=== PATIENT | female | born 2000 | race Caucasian/White ===

== ENCOUNTER → 2021-06-14 12:09 | Outpatient (CLI) | payer OTHER, SELFPAY ==
--- NOTE | 2021-06-14 12:13 | DI.US.S_ITS ---
PROCEDURE: US OB <= 14 WEEKS FETUS INDICATIONS: VIABILITY AND DATING. OUTSIDE/PRIOR DATING DATA: Last menstrual period (LMP): 04/11/21 . LMP-based estimated date of delivery (MAINOR): 01/16/22 . First dating scan (date and location): 06/14/21, current study . Estimated date of delivery (MAINOR) from first dating scan: 01/18/22 . TECHNIQUE: Real-time scanning was performed of the fetus and maternal pelvic organs, with image documentation. COMPARISON: None. FINDINGS: Embryo: Single fetus demonstrates crown-rump length of 2.20 cm corresponding to an eight week six day plus or minus five days gestation. Normal yolk sac is visible. Unfused amnion is seen. Heart rate: 175 beats per minute Measurement variability in dating: +/- 4 weeks by LMP, +/- 7 days by mean sac diameter (use before 6 weeks gestation if crown-rump length not able to be measured), +/- 5 days by crown-rump length (up to 8 weeks 6 days gestation), +/- 7 days by crown-rump length (up to 13 weeks 6 days gestation). Maternal organs: Anteverted uterus with a fundal gestational sac and no perigestational hemorrhage. Possible sub septate uterine morphology. Closed cervix. 2 dominant follicles on the right ovary measuring 2.2 and 2.1 cm. Normal left ovary. Trace periovarian fluid. IMPRESSION: 1. Single viable intrauterine with a gestational age of eight weeks, six days, and sonographically derived due date of 01/18/22. This is in good agreement with the clinically assigned gestational age. 2. Possible sub septate uterine morphology given shaped gestational sac. Dictated by: Zoey Najera M.D. on 06/14/2021 at 17:41 Approved by: Zoey Najera M.D. on 06/14/2021 at 17:47
== END ==
PROVIDERS: Referring Provider Family Medicine; Visit Provider Family Medicine
DX: Z34.01 Encounter for supervision of normal first pregnancy, first trimester (principal); Z3A.08 8 weeks gestation of pregnancy
CPT/HCPCS: 76801; 76817

== ENCOUNTER → 2021-08-14 08:29 | Outpatient (CLI) | payer OTHER, SELFPAY ==
[2021-08-14 09:05] LABS: Appearance Urine UA CLEAR; Bilirubin Urine UA NEGATIVE (NEGATIVE); Color Urine UA YELLOW; Glucose Urine UA NEGATIVE (Negative); Ketones Urine UA NEGATIVE (NEGATIVE); Leukocyte Esterase Urine UA NEGATIVE (NEGATIVE); Nitrite Urine UA NEGATIVE (Negative); Occult Blood Urine UA NEGATIVE (Negative); Protein Urine UA NEGATIVE (Negative); Urobilinogen Urine UA 0.2 E.U./dL (0.2)
[2021-08-14 09:38] LABS: Add Manual Diff / Slide Review NO; Basophils Absolute Auto 100 /uL (0-100); Basophils Percent Auto 0.6 % (0-2); Eosinophils Absolute Auto 200 /uL (0-450); Eosinophils Percent Auto 1.4 % (2-4); Hematocrit 36.5 % (36-46); Hemoglobin 12.3 g/dL (12.0-16.0); Lymphocytes Absolute Auto 2000 /uL (1100-4500); Lymphocytes Percent Auto 17.4 % (25-40); Mean Corpuscular HGB Conc 33.6 % (30-36); Mean Corpuscular Hemoglobin 30.9 PG (26-34); Mean Corpuscular Volume 91.9 fL (80-100); Monocytes Absolute Auto 1000 /uL (0-900); Monocytes Percent Auto 8.9 % (3-14); Neutrophils Absolute Auto 8200 /uL (1500-7000); Neutrophils Percent Auto 71.7 % (50-75); Platelet Count 321 X10^3/uL (150-400); Red Blood Cell Count 3.97 X10^6/uL (4.0-5.2); Red Cell Distribution Width 13.6 % (11.6-14.8); White Blood Cell Count 11.4 X10^3/uL (4.5-11.0)
[2021-08-14 17:46] LABS: HIV 1 & 2 Ab/Ag 4th Gen Combo NEGATIVE (NEGATIVE); Hep C Virus Ab w/Reflex Quant NEGATIVE s/c (NEGATIVE); Hepatitis B Surface Antigen NEGATIVE s/c (NEGATIVE); Rubella Antibody IgG 33.4 IU/mL (>15)
[2021-08-15 07:00] LABS: RPR Screen Non Reactive (Non Reactive)
[2021-08-15 08:36] LABS: Varicella IgG Antibody 676 index (Immune >165)
[2021-08-16 20:13] LABS: Estriol, Free 1.23 ng/mL (.); Inhibin A, Dimeric 255.98 pg/mL (.); Inhibin A, MoM 1.55 (.); Maternal Ethnicity Caucasian (.); Maternal Weight 140 lbs (.); Number of Fetuses No (.); OSBR Risk 1 IN 8371 (.); Results Report (.); Test Results *Screen Negative* (.); hCG, MoM 2.25 (.); hCG, Serum 69706 mIU/mL (.)
== END ==
PROVIDERS: Referring Provider Family Medicine; Visit Provider Family Medicine
DX: Z34.01 Encounter for supervision of normal first pregnancy, first trimester (principal); Z3A.17 17 weeks gestation of pregnancy
CPT/HCPCS: 36415; 80055; 81003; 82105; 82677; 84702; 86336; 86787; 86803; 86850; 86900; 86901; 87086; 87389

== ENCOUNTER → 2021-09-05 09:12 | Outpatient (CLI) | payer OTHER, SELFPAY ==
--- NOTE | 2021-09-05 09:12 | DI.US.S_ITS ---
PROCEDURE: US OB >= 14 WEEKS FETUS INDICATIONS: ANATOMY OUTSIDE/PRIOR DATING DATA: Last menstrual period (LMP): 04/11/2021. LMP-based estimated date of delivery (MAINOR): 01/16/2022. First dating scan (date and location): 06/14/2021. Estimated date of delivery (MAINOR) from first dating scan: 01/18/2022. TECHNIQUE: Real-time scanning was performed of the fetus, with image documentation and biometric measurements. COMPARISON: [facility], OB <= 14 WEEKS FETUS, 06/14/2021, 12:23. FINDINGS: General: A single living intrauterine gestation is present. Presentation: Breech. Placenta: Placental position is posterior , without previa. Amniotic fluid index: 11.2 cm, normal range is 5-24 cm. heart rate: 149 beats per minute. Maternal cervical canal: 3.3 cm long. Normal lower limit is 2.5 cm. biometrics: Biparietal diameter: 4.7 cm 20 weeks 2 days Head circumference: 17.7 cm 20 weeks 1 day Abdominal circumference: 15.2 cm 20 weeks 3 days Femur length: 3.4 cm 20 weeks 3 days Gestational age from initial ultrasound: 20 weeks 5 days Composite gestational age from present scan: 20 weeks 2 days Estimated weight and percentile: 352 g 29th percentile Anatomic survey: Neuro: Ventricles are non-dilated at less than 10 mm. Cisterna magna is normal at 3-11 mm. Cerebellum is normal in size and morphology. Nuchal skin fold: Normal at less than 6 mm between 14-21 weeks gestational age. Face: Nose and lips, facial profile are normal. Spine: No evidence for spina bifida. Heart: 4-chambered heart is present, with normal ventricular outflow tracts. Diaphragm: Diaphragm is intact. Stomach: Left-sided stomach is present. Kidneys: No hydronephrosis. Normal is less than 5 mm in 2nd trimester, less than 7 mm in 3rd trimester. Cord: 3-vessel cord has orthotopic insertion. Bladder: Normal in size. Extremities: All 4 extremities identified. IMPRESSION: 1. Single live intrauterine with ultrasound gestational age from current ultrasound is 20 weeks 2 days compared to 20 weeks 5 days from initial ultrasound. 2. Anatomy is within normal limits. 3. It was noted on previous ultrasound the presence of a septate uterus. Uterine images for evaluation of this are not present on current exam. If this remains of concern, recommend dedicated images on subsequent exams as technically possible. We strive to produce accurate, complete, and clear reports of imaging services. To assist us in improving patient care, this report was composed using standard report templates and voice recognition software. Therefore, it may contain abnormal punctuation, insertions and/or omissions. Occasional wrong-word or sound-alike substitutions may occur. Though we review the report and make efforts to correct it, we do recommend that the report be read carefully in proper context to recognize any text inaccuracies. Dictated by: Rafaela Scruggs M.D. on 09/05/2021 at 13:08 Approved by: Rafaela Scruggs M.D. on 09/05/2021 at 13:12
== END ==
PROVIDERS: Referring Provider Family Medicine; Visit Provider Family Medicine
DX: Z36.89 Encounter for other specified antenatal screening (principal); Z3A.20 20 weeks gestation of pregnancy
CPT/HCPCS: 76811

== ENCOUNTER → 2021-11-02 17:11 | Outpatient (CLI) | payer OTHER, SELFPAY ==
--- NOTE | 2021-11-02 17:12 | DI.US.S_ITS ---
PROCEDURE: US OB LIMITED INDICATIONS: follow up possible septate uterus, growth OUTSIDE/PRIOR DATING DATA: Last menstrual period (LMP): 04/11/21. LMP-based estimated date of delivery (MAINOR): 01/16/22. First dating scan (date and location): 06/14/21. Estimated date of delivery (MAINOR) from first dating scan: 01/18/22. The calculations are made using the ultrasound MAINOR of 01/18/22. TECHNIQUE: Real-time scanning was performed of the fetus, with image documentation. Endovaginal scanning: Not performed COMPARISON: [facility], OB <= 14 WEEKS FETUS, 06/14/2021, 12:23. [facility], OB >= 14 WEEKS FETUS, 09/05/2021, 9:24. FINDINGS: A single living intrauterine gestation is present. Presentation: Vertex Placenta: Placental position is posterior, without previa. Amniotic fluid index: 13.9 cm, normal range is 5-24 cm. Single deepest vertical pocket is 4.6 cm. heart rate: 158 beats per minute. Maternal cervical canal: 3.9 cm long. Normal lower limit is 2.5 cm. Biparietal diameter 7.3 cm, 29 weeks, one day Head circumference 27.0 cm, 29 weeks, three days Abdominal circumference 24.5 cm, 28 weeks, six days Femur length 5.5 cm, 29 weeks, 0 days Estimated gestational age from initial scan: 29 weeks, 0 days Clinically estimated gestational age: 29 weeks, one day Estimated weight 1310 g, 35th percentile IMPRESSION: 1. Single living intrauterine with appropriate growth. 2. Estimated weight at the 35th percentile. 3. Normal amniotic fluid volume. Dictated by: Zoey Najera M.D. on 11/03/2021 at 10:32 Approved by: Zoey Najera M.D. on 11/03/2021 at 10:36
== END ==
PROVIDERS: PCP Family Medicine; Referring Provider Family Medicine; Visit Provider Family Medicine
DX: Z36.2 Encounter for other antenatal screening follow-up (principal); Z3A.29 29 weeks gestation of pregnancy
CPT/HCPCS: 76815

== ENCOUNTER → 2021-11-09 11:04 | Outpatient (CLI) | payer OTHER, SELFPAY ==
[2021-11-09 12:55] LABS: Hematocrit 34.6 % (36-46); Hemoglobin 11.5 g/dL (12.0-16.0)
[2021-11-09 13:37] LABS: GTT (PREG) 1 Hour PP 50gm Dose 135 mg/dL (76-139)
== END ==
PROVIDERS: PCP Family Medicine; Referring Provider Family Medicine; Visit Provider Family Medicine
DX: Z34.92 Encounter for supervision of normal pregnancy, unspecified, second trimester (principal); Z3A.26 26 weeks gestation of pregnancy
CPT/HCPCS: 36415; 82950; 85014; 85018

== ENCOUNTER → 2021-12-21 10:50 | Outpatient (CLI) | payer OTHER, SELFPAY ==
[2021-12-23 11:21] LABS: Strep Grp B PCR NEG for Grp B Strep
== END ==
PROVIDERS: PCP Family Medicine; Visit Provider Family Medicine
DX: Z34.93 Encounter for supervision of normal pregnancy, unspecified, third trimester (principal); Z3A.36 36 weeks gestation of pregnancy
CPT/HCPCS: 87653

== ENCOUNTER 2022-01-18 09:26 | Observation (INO) | payer OTHER, SELFPAY ==
[2022-01-18 11:24] VITALS: BP 138/84
[2022-01-18] MEDS: MORPHINE 10 MG/ML INJ 6 MG IM (11:37)
[2022-01-18] MEDS: ONDANSETRON 4 MG ODT SL (11:37)
--- NOTE | 2022-01-18 12:09 | PM.OBTRLD ---
Visit Information Visit Information Date of evaluation: 01/18/22 Primary OB Provider: Yanci Stewart Reason for Evaluation: Yes rule out labor Comments/Additional reasons for admission: 21-year-old at 40 weeks and 2 days coming in with regular painful contractions. Contractions began last night at approximately 8:00 p.m. but picked up this morning. Denies leaking bleeding and reports good movement. She has been very nauseated and vomiting. Vital Signs Vital Signs: Vital Signs - 8 hr 01/18/22 11:24 Blood Pressure 138/84 [facility] Medical History Acne (~2009) Allergies (~2006) Anxiety (~2007) Asthma (~2008) Depression (~2007) Eczema (~2006) History of multiple concussions (~2013) Painful menstrual periods (~2012) Rosacea (~2006) Vaccine reaction (~1999) Family History Mother Hypothyroid Father No problems noted. Grandmother No problems noted. Grandfather No problems noted. Grandmother No problems noted. Grandfather No problems noted. Brother Diabetes mellitus Social History marital status: household members: spouse lives independently: Yes caregiver/support person: No housing: house pets and animals: Yes (1 cat, 1 dog: safe, aware. 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 ) substance use type: does not use during the past year weight has: remained stable well-balanced diet: daily or most days daily servings fruits/ve or more times/day caffeine: Yes Type(s) of exercise: normal ROM and activity (Very busy at work, constantly moving, 4 days/week. ) frequency: does not exercise Exam Vital Signs (past 8 hours): - 01/18/22 11:24 Blood Pressure 138/84 Evaluation Evaluation Baseline heart rate: 130 Variability: Moderate (11-25) monitor accelerations: Present Monitor Decelerations: Absent Contraction Frequency (minutes): 4 Category of Tracing: Reactive Cervical dilation (cm): 3 Cervical effacement (%): 75 station: -2 Diagnosis, Plan/Disposition Final Diagnosis (1) 40 weeks gestation of : Status: Acute Plan/Disposition Plan: 21-year-old at 40 weeks and 2 days gestation. SVE unchanged after 2 hours. Vomiting and nausea improved with Zofran. Pain improved with morphine. Patient was given a dose of hydroxyzine and encouraged to go home and rest. She feels she could fall asleep. She will return when contractions pickle maker or for leaking or bleeding. OB Disposition: home
[2022-01-18] MEDS: hydrOXYzine pamoate 25 MG CAPSULE PO (13:46)
== END 2022-01-18 13:50 | disposition home or self-care (01) ==
PROVIDERS: Admitting Provider Family Medicine; PCP Family Medicine; Referring Provider Family Medicine; Visit Provider Family Medicine
DX: O47.1 False labor at or after 37 completed weeks of gestation (principal); O48.0 Post-term pregnancy; Z3A.40 40 weeks gestation of pregnancy
CPT/HCPCS: 59050; G0378; G0379; J2270

== ENCOUNTER 2022-01-18 18:52 | Inpatient (IN) | payer OTHER, MEDICAID, SELFPAY ==
--- NOTE | 2022-01-18 19:37 | P.HPOB_ITS ---
OB HPI Date/Time Date of admission: 01/18/22 Date Patient Seen: 01/18/22 Time Patient Seen: 19:30 History of Present Condition Chief complaint: Labor MAINOR Calculator Estimated Delivery Date Method Current WG Current Estimate 01/16/22 LMP (Certain) 40w 2d Other Estimates 01/18/22 Ultrasound #1 40w 0d : 1 Narrative: 21-year-old at 40 weeks and 2 days gestation who presents with increasingly painful contractions over the last several hours. She was seen in triage earlier today and sent home after no cervical change. Denies leaking or bleeding and reports good movement. has been uncomplicated. care: good care, initiated at week # (10), number of visits (11) and pounds weight gain (48) Dating criteria OB: LMP confirmed by 1st trimester US Ultrasounds: other (possible uterine septation seen on first trimester US, not seen on f/u imaging) Obstetrical complications: none Medical complications OB: none Preadmission Labs Last OB Lab Results: Blood Type A Positive 08/14/21 08:39 08/14/21 Antibody Screen Negative 08/14/21 08:39 08/14/21 Hematocrit 36.2 % (36-46) 01/18/22 20:30 01/18/22 Hemoglobin 11.9 g/dL (12.0-16.0) L 01/18/22 20:30 01/18/22 Hepatitis B Surface Antigen Negative s/c (NEGATIVE) 08/14/21 08:39 08/14/21 Hepatitis C Antibody Negative s/c (NEGATIVE) 08/14/21 08:39 08/14/21 Rubella Antibody 33.4 IU/mL (>15) 08/14/21 08:39 08/14/21 Varicella-Zoster IgG Antibody 676 index (Immune >165) 08/14/21 08:39 Glucose 1 Hour 135 mg/dL (76-139) 11/09/21 12:29 11/09/21 Group B Streptococcus (PCR) Neg for grp b strep 12/21/21 10:50 12/21/21 -: Urine: negative Genetic Screens: Quad screen: Normal External Labs -: Urine: negative Evaluation Evaluation Baseline heart rate: 130 Variability: Moderate (11-25) monitor accelerations: Present Monitor Decelerations: Absent Contraction Frequency (minutes): 4 Status: Category l Dilation (cm): 5 Effacement (%): 75 station: -2 [facility] Medical History Acne (~2009) Allergies (~2006) Anxiety (~2007) Asthma (~2008) Depression (~2007) Eczema (~2006) History of multiple concussions (~2013) Painful menstrual periods (~2012) Rosacea (~2006) Vaccine reaction (~1999) Family History Mother Hypothyroid Father No problems noted. Grandmother No problems noted. Grandfather No problems noted. Grandmother No problems noted. Grandfather No problems noted. Brother Diabetes mellitus Social History marital status: household members: spouse lives independently: Yes caregiver/support person: No housing: house pets and animals: Yes (1 cat, 1 dog: safe, aware. 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 ) substance use type: does not use during the past year weight has: remained stable well-balanced diet: daily or most days daily servings fruits/ve or more times/day caffeine: Yes Type(s) of exercise: normal ROM and activity (Very busy at work, constantly moving, 4 days/week. ) frequency: does not exercise Meds Home Medications and Allergies Home Medications Medication Instructions Recorded Confirmed Type cholecalciferol (vitamin D3) 50 50 mcg PO DAILY 06/15/21 01/18/22 History mcg (2,000 unit) capsule prenat.vits,alverto,lde-hjye-ibjku 1 tab PO DAILY 06/15/21 01/18/22 History pyridoxine (vitamin B6) 100 mg 100 mg PO ONCE tab 06/15/21 01/18/22 History tablet ondansetron 4 mg disintegrating 4 mg SUBLINGUAL Q4HR PRN #10 tab 01/18/22 Rx tablet sertraline 50 mg tablet (Zoloft) 25 mg PO DAILY 01/18/22 01/18/22 History Allergies Allergy/AdvReac Type Severity Reaction Status Date / Time tree and shrub pollen Allergy Mild Hay fever Verified 01/18/22 11:27 symptoms, itchy eyes/nose OB Exam HENMT Head: normal to inspection Mouth: oral mucosae normal Eyes General: appearance normal, both eyes and all related structures Resp Effort & Inspection: normal respiratory effort Cardio Rate: regular rate Rhythm: regular rhythm Extremities Lower extremity: Yes normal to inspection; No edema Estimated Weight (lbs): 7 Objective Labs Result Diagrams: 01/18/22 20:30 Assessment and Plan Assessment and Plan Assessment and Plan narrative: 21-year-old at 40 weeks and 2 days in active labor. GBS negative. Admit for labor. Epidural upon request though patient desires natural methods for pain control for now.
[2022-01-18 20:44] LABS: Add Manual Diff / Slide Review NO; Basophils Absolute Auto 0 /uL (0-100); Basophils Percent Auto 0.2 % (0-2); Eosinophils Absolute Auto 0 /uL (0-450); Hematocrit 36.2 % (36-46); Hemoglobin 11.9 g/dL (12.0-16.0); Lymphocytes Absolute Auto 1100 /uL (1100-4500); Mean Corpuscular HGB Conc 32.9 % (30-36); Mean Corpuscular Hemoglobin 29.8 PG (26-34); Mean Corpuscular Volume 90.5 fL (80-100); Monocytes Absolute Auto 700 /uL (0-900); Monocytes Percent Auto 3.8 % (3-14); Neutrophils Absolute Auto 17000 /uL (1500-7000); Platelet Count 318 X10^3/uL (150-400); Red Cell Distribution Width 14.1 % (11.6-14.8); White Blood Cell Count 18.9 X10^3/uL (4.5-11.0)
[2022-01-18] MEDS: LACTATED RINGERS 1,000 ML 100 ML IV ×2 (20:45→22:03)
[2022-01-18 20:53] LABS: COVID19 -Nasal RAPID Negative (Negative)
[2022-01-18] MEDS: fentaNYL 100 MCG/2 ML INJ 50 MCG IV ×2 (21:19→23:09)
--- NOTE | 2022-01-19 05:59 | PM.OBPNLAB ---
Date/Time Date Patient Seen: 01/19/22 Time Patient Seen: 05:50 Pain Control Pain control: epidural Comments: Patient complains of more pain, feels as if the epidural has worn off despite bolus with anesthesia. Whole belly is painful. Denies rectal pressure. Pelvic Exam Dilation (cm): 9 Effacement (%): 100 station: -1 Contractions Contraction frequency (min): 3 Status status: Category l Heart Rate Baseline: 130 Monitor Accelerations: Present Monitor Decelerations: Absent Monitor Variability: Moderate Assessment and Plan Assessment: active labor Plan: continuous present management Comments: 21 year old at 40+3 weeks in active labor though epidural is no longer adequate. Appreciate anesthesia assistance to get her more comfortable. Discussed AROM after she is feeling better to facilitate progression of labor. Progress has been slow but steady.
--- NOTE | 2022-01-19 06:34 | PM.OBPNLAB ---
Date/Time Date Patient Seen: 01/19/22 Time Patient Seen: 06:34 Pain Control Pain control: tolerating well and epidural Comments: More comfortable after re-dose with anesthesia Pelvic Exam Dilation (cm): 9 Effacement (%): 100 station: -1 Amniotic membrane status: Ruptured (AROM with small amount of clear fluid) Contractions Contraction frequency (min): 3 Status status: Category l Heart Rate Baseline: 130 Monitor Accelerations: Present Monitor Decelerations: Absent and Early Monitor Variability: Moderate Assessment and Plan Assessment: active labor Plan: continuous present management Comments: Patient is now more comfortable after re-dosing epidural. AROM for clear fluid. Anticipate vaginal delivery.
[2022-01-19] MEDS: FENT 2MCG/ML BUPIV 0.125% EPI 200 MCG/100 ML PLAST..BAG 8 MCG EPIDURAL (08:16)
[2022-01-19] MEDS: LACTATED RINGERS 1,000 ML 100 ML IV (09:07)
[2022-01-19] MEDS: METHYLERGONOVINE 0.2 MG/ML VIAL IM (09:07)
[2022-01-19] MEDS: OXYTOCIN PREMIX 30 UNIT/500 ML PLAST..BAG 200 UNIT IV (09:08)
[2022-01-19] MEDS: miSOPROStoL 200 MCG TABLET 800 MCG PR (09:08)
--- NOTE | 2022-01-19 09:19 | P.PCNOB_ITS ---
Labor & Delivery Delivery date: 01/19/22 Delivery augmentation: rupture of membranes Delivery monitor: external FHT Route of delivery: L&D Laceration Description: Vaginal - 2nd Degree and Labial Delivery repair: chromic Estimated blood loss (mL): 500 Anesthesia Type: Epidural Complications: hemorrhage Narrative: STAGE I: Labor 21-year-old at 40 weeks and 3 days who arrived in active labor. She went on to receive an epidural. Progress through labor was slow but steady. Artificial rupture of membranes at 6:30 a.m. with a small amount of clear fluid. Patient was complete at 7:43 a.m.. EFM category 1 throughout stage I. She had difficulty with pain control prior to artificial rupture of membranes but was re-dosed by anesthesia with good results. STAGE II: Delivery Second stage of labor lasted 1 hour. She delivered a viable female infant at 8:44 a.m.. was vertex and MARILU. The head initially delivered but was pulled close to the perineum when pushing efforts ceased. Mother was again encouraged to push. There was a brief approximately 30 second shoulder dystocia which was relieved with make Lozano maneuver. The anterior shoulder than delivered followed by the posterior shoulder. The cord was on top of the right shoulder. Infant was initially placed on mother's abdomen. She had good tone and heart rate however no respiratory effort and poor color. After drying and stimulating the decision was made to clamp and cut the cord and move her to the warmer. At the warmer she received CPAP for several minutes. RT arrived. After delee suctioning several times she improved significantly and transitioned to room air. By 15 minutes of life she was returned skin to skin with to mother. Apgars were 6, 8 and 9. STAGE III: Placenta/Cord Placenta delivered at 8:53 a.m.. Pitocin bolus given after delivery of placenta. Uterine massage was significant for passage of several large clots. Patient was then given Cytotec per rectum the and a request made for Methergine. Uterine massage continued with improvement in tone. She then received a dose of Methergine. Bleeding improved significantly as did uterine tone without need for further intervention. A right labial laceration was repaired with 3-0 chromic with good hemostasis. There was also a short vaginal laceration which was also repaired with 3-0 chromic in the usual fashion with good hemostasis. EBL: 500 mL. Needle and sponge counts were correct. The vagina was inspected and no items were left in situ. Patient was doing well with [place], her and mother at bedside. Baby 1: Infant gender: Female Presentation: vertex Position: Right Occiput Anterior Placenta delivery description: Spontaneous score (1 min): 6 score (5 min): 8 score (10 min): 9 Plan for aftercare: Routine care
[2022-01-19 12:46] VITALS: BP 135/61
[2022-01-19] MEDS: IBUPROFEN 600 MG TABLET PO (14:23)
[2022-01-20] MEDS: IBUPROFEN 600 MG TABLET PO (04:40)
[2022-01-20 06:48] LABS: Add Manual Diff / Slide Review NO; Basophils Absolute Auto 0 /uL (0-100); Basophils Percent Auto 0.3 % (0-2); Eosinophils Absolute Auto 100 /uL (0-450); Hematocrit 26.5 % (36-46); Hemoglobin 8.7 g/dL (12.0-16.0); Lymphocytes Absolute Auto 2200 /uL (1100-4500); Lymphocytes Percent Auto 20.3 % (25-40); Mean Corpuscular HGB Conc 32.7 % (30-36); Mean Corpuscular Hemoglobin 29.8 PG (26-34); Mean Corpuscular Volume 91.2 fL (80-100); Monocytes Absolute Auto 1300 /uL (0-900); Neutrophils Absolute Auto 7000 /uL (1500-7000); Neutrophils Percent Auto 66.4 % (50-75); Platelet Count 220 X10^3/uL (150-400); Red Blood Cell Count 2.91 X10^6/uL (4.0-5.2); Red Cell Distribution Width 14.1 % (11.6-14.8); White Blood Cell Count 10.6 X10^3/uL (4.5-11.0)
--- NOTE | 2022-01-20 07:17 | P.DS_ITS ---
Discharge Providers Provider Date of admission: 01/18/22 18:52 Discharge Date: 01/20/22 Primary care physician: Sorin Freed MD Consults: 01/20/22 09:20 Consult to [employer] Routine Comment: Discharge provider: Taylor Licona MD Summary Hospital Course Date Patient Seen: 01/20/22 Time Patient Seen: 07:17 Diagnoses: Spontaneous vaginal delivery Hospital Course: Patient arrived on Labor and delivery in active labor. She received an epidural catheter for pain control. She had a spontaneous vaginal delivery with repair of a second-degree tear. She had a hemorrhage that resolved with medication. She is breast-feeding without difficulty. Urinating and ambulating well. Pain is under control. Peripartum Data Infant Delivery Method: Natural Vaginal Laceration Description: Perineal - 2nd Degree Procedures: Epidural catheter, spontaneous vaginal delivery, repair of second-degree tear complications: none 1: Gender: Female Disposition of : home Discharge Diagnosis (1) Vaginal delivery: Status: Acute Status at Discharge Cognitive/behavioral status at discharge: oriented Functional status at discharge: independent ambulation Overall status at discharge: patient is progressing back to baseline Time Spent with Patient Time attestation: Total time spent providing and/or coordinating discharge services: Time spent: Less than 30 minutes Objective Labs Result Diagrams: 01/20/22 06:28 Labs: Laboratory Results - last 24 hr 01/20/22 06:28 WBC 10.6 RBC 2.91 L Hgb 8.7 L Hct 26.5 L MCV 91.2 MCH 29.8 MCHC 32.7 RDW 14.1 Plt Count 220 Neut % (Auto) 66.4 D Lymph % (Auto) 20.3 L [place] % (Auto) 12.0 Eos % (Auto) 1.0 L Baso % (Auto) 0.3 Neut # (Auto) 7000 Lymph # (Auto) 2200 [place] # (Auto) 1300 H Eos # (Auto) 100 Baso # (Auto) 0 Exam Vital Signs (past 8 hours): Blood pressure 118/56, pulse of 88, temperature 35.5? Narrative Exam Narrative: Abdomen is soft, nontender. Uterus is firm, at U, nontender. Repair is intact. Mild lochia. Extremities without edema and nontender. Patient's blood type is A positive, she is rubella immune, she received Tdap in the 3rd trimester. Discharge Plan Discharge Plan Patient Disposition: Home Discharge orders & Medications Prescriptions: New ferrous sulfate 325 mg (65 mg iron) Tablet 325 mg PO BIDWM Qty: 60 0RF Continued prenat.vits,alverto,uzd-itel-enhix Tablet 1 tab PO DAILY 0RF cholecalciferol (vitamin D3) 50 mcg (2,000 unit) capsule 50 mcg PO DAILY 0RF sertraline [Zoloft] 50 mg tablet 25 mg PO DAILY 0RF Follow up/Referrals: Sorin Freed MD [Primary Care Provider] - Yanci Stewart DO [Physician] - 6 Weeks Diet/Activity/Treatments Diet: Regular Activity: Nothing in vagina for 6 weeks Skin/Wound/Dressing Care Report to your healthcare provider any signs of infection, such as:: chills, fever and increased pain Discharge Data Primary Care Provider: Sorin Freed
[2022-01-20] MEDS: PRENATAL VIT,CALC/IRON/FOLIC 1 TABLET 1 TAB PO (08:38)
[2022-01-20] MEDS: DOCUSATE 100 MG CAPSULE PO (08:38)
[2022-01-20] MEDS: FERROUS SULFATE 325 MG TABLET PO (08:38)
[2022-01-20] MEDS: SERTRALINE 50 MG TABLET 25 MG PO (08:38)
[2022-01-20 13:33] VITALS: BP 110/54; PULSE 84; RESP 16; TEMP 35.8
== END 2022-01-20 15:10 | disposition home or self-care (01) | DRG 806 ==
PROVIDERS: Admitting Provider Family Medicine; PCP Family Medicine; Referring Provider Family Medicine; Visit Provider Family Medicine
DX: O48.0 Post-term pregnancy (principal); O72.0 Third-stage hemorrhage; Z37.0 Single live birth; D62 Acute posthemorrhagic anemia; O90.81 Anemia of the puerperium; Z3A.40 40 weeks gestation of pregnancy; O70.1 Second degree perineal laceration during delivery; O70.0 First degree perineal laceration during delivery; O66.0 Obstructed labor due to shoulder dystocia; Z20.822 Contact with and (suspected) exposure to COVID-19
CPT/HCPCS: 01967; 36415; 59050; 59400; 85025; 86850; 86900; 86901; 87635; C9803; G0378; G0379; J2210; J2270; J2590; J3010; S0191